=== PATIENT | female | born 1960 | race Asian ===

== ENCOUNTER → 2018-03-04 11:34 | Outpatient (CLI) | payer OTHER, SELFPAY | PROVIDERS: PCP Family Medicine | DX: Z23 Encounter for immunization (principal) | CPT/HCPCS: 90471; 90682 ==

== ENCOUNTER → 2019-03-25 17:28 | Outpatient (CLI) | payer OTHER, BC, SELFPAY | PROVIDERS: PCP Family Medicine | DX: Z23 Encounter for immunization (principal) | CPT/HCPCS: 90471; 90682 ==

== ENCOUNTER → 2019-07-08 07:36 | Outpatient (CLI) | payer OTHER, BC, SELFPAY ==
--- NOTE | 2019-07-08 | DI.MG.S_ITS ---
BILATERAL DIGITAL SCREENING MAMMOGRAM 3D/2D WITH CAD: 07/08/2019 CLINICAL: Routine screening. Comparison is made to exams dated: 03/17/2014 mammogram, 08/09/2011 mammogram, and 05/07/2007 mammogram - [facility]. The tissue of both breasts is heterogeneously dense. This may lower the sensitivity of mammography. Current study was also evaluated with a Computer Aided Detection (CAD) system. No significant masses, calcifications, or other findings are seen in either breast. There has been no significant interval change. IMPRESSION: NEGATIVE There is no mammographic evidence of malignancy. A 1 year screening mammogram is recommended. This exam was interpreted at Station ID: [id number]. NOTE: For mammograms, a report in lay terms will be sent to the patient. Approximately 15% of breast malignancies will not be visualized mammographically. In the management of a palpable breast mass, a negative mammogram must not discourage biopsy of a clinically suspicious lesion. Electronically Signed By: Francisco hay/jerzy:07/08/2019 08:51:06 letter sent: Normal Exam ACR BI-RADS Category 1: Negative [id number]
== END ==
PROVIDERS: PCP Family Medicine; Referring Provider Family Medicine; Visit Provider Family Medicine
DX: Z12.31 Encounter for screening mammogram for malignant neoplasm of breast (principal)
CPT/HCPCS: 77063; 77067

== ENCOUNTER → 2020-01-19 10:14 | Outpatient (CLI) | payer OTHER, BC, SELFPAY ==
[2020-01-20 09:16] LABS: COVID19 Sendout Not Detected (Not Detect)
== END ==
PROVIDERS: PCP Family Medicine; Visit Provider Physician Assistant
DX: Z03.818 Encounter for observation for suspected exposure to other biological agents ruled out (principal); R05 Cough
CPT/HCPCS: 87635

== ENCOUNTER → 2020-03-24 | Outpatient (CLI) | payer OTHER, BC, SELFPAY | PROVIDERS: PCP Family Medicine; Referring Provider Internal Medicine; Visit Provider Internal Medicine | DX: Z23 Encounter for immunization (principal) | CPT/HCPCS: 90471; 90682 ==

== ENCOUNTER → 2020-03-31 09:58 | Outpatient (CLI) | payer OTHER, BC, SELFPAY ==
[2020-03-31 10:23] LABS: COVID19 -Nasal RAPID Negative (Negative)
== END ==
PROVIDERS: PCP Family Medicine; Visit Provider Physician Assistant
DX: Z11.59 Encounter for screening for other viral diseases (principal)
CPT/HCPCS: 87635

== ENCOUNTER → 2020-06-28 08:54 | Outpatient (CLI) | payer OTHER, BC, SELFPAY ==
[2020-06-28 09:21] LABS: COVID19 -Nasal RAPID Negative (Negative)
== END ==
PROVIDERS: PCP Family Medicine; Visit Provider Nurse Practitioner Family
DX: Z20.822 Contact with and (suspected) exposure to COVID-19 (principal)
CPT/HCPCS: 87635

== ENCOUNTER → 2021-01-18 11:43 | Outpatient (CLI) | payer OTHER, BC, SELFPAY ==
[2021-01-18 14:04] LABS: COVID19 -Nasal RAPID Negative (Negative)
== END ==
PROVIDERS: PCP Family Medicine; Visit Provider Nurse Practitioner
DX: Z20.822 Contact with and (suspected) exposure to COVID-19 (principal)
CPT/HCPCS: 87635

== ENCOUNTER → 2021-03-24 10:48 | Outpatient (CLI) | payer OTHER, BC, SELFPAY ==
[2021-03-26 11:32] LABS: COVID19 Sendout Not Detected (Not Detect)
== END ==
PROVIDERS: PCP Family Medicine; Visit Provider Nurse Practitioner
DX: Z20.822 Contact with and (suspected) exposure to COVID-19 (principal)
CPT/HCPCS: 87635

== ENCOUNTER → 2024-03-11 09:44 | Outpatient (CLI) | payer OTHER, SELFPAY ==
--- NOTE | 2024-03-11 09:46 | DI.RAD.S_ITS ---
PROCEDURE: XR KNEE LT 3V INDICATIONS: KNEE PAIN TECHNIQUE: 3 views of the knee were acquired. COMPARISON: None. FINDINGS: Bones: No fractures or dislocations. Osteophytic lipping most pronounced at the lateral left patella. The patellar tracks laterally without the kinesiology tape. Minimal joint space loss. No suspicious bony lesions. Soft tissues: Small left joint effusion. No suspicious soft tissue calcifications. IMPRESSION: No acute fracture. Mild degenerative changes seen. Compared to the xray with taping, there is minimal left patellar tracking without the kinesiology tape. Consider MRI for further evaluation. Dictated by: Pierre Bryant M.D. on 03/12/2024 at 18:43 Approved by: Pierre Bryant M.D. on 03/12/2024 at 18:47
== END ==
PROVIDERS: PCP Family Medicine; Referring Provider Family Medicine; Visit Provider Family Medicine
DX: M25.562 Pain in left knee (principal); M25.462 Effusion, left knee
CPT/HCPCS: 73562

== ENCOUNTER → 2024-04-29 | Outpatient (CLI) | payer OTHER, BC, SELFPAY ==
--- NOTE | 2024-04-29 11:46 | DI.RAD.S_ITS ---
PATIENT NAME: VANDANA CAVAZOS : 1960 EXAM DATE: 04/29/2024 11:[address] SADI DE JESUS M.D. CC: MODALITY: CR PATIENT TYPE: Out CONTRAST MEDIA: STATION ID: [id number] FLUORO TIME: PROCEDURE: XR LUMBAR SPINE MIN 4V INDICATIONS: RIGHT LOW BACK PAIN TECHNIQUE: 5 views of the lumbar spine acquired, including flexion and extension views. COMPARISON: None. FINDINGS: Bones: 5 nonrib-bearing vertebrae are present. There is normal bony alignment. No vertebral body compression fractures. No suspicious bony lesions. Endplate osteophytes indicating early mild multilevel disc degeneration. Right hip arthroplasty partially visualized. Soft tissues: Overlying bowel gas pattern is normal. No suspicious soft tissue calcifications. Flexion/extension: There is reduced range of motion, with preserved normal alignment. IMPRESSION: Endplate osteophytes indicating early mild multilevel disc degeneration. Dictated by: Titi DAMIAN Interpreted: Charlie Koehler MD on 05/01/2024 at 9:57 Transcribed by: MIKE on 05/01/2024 at 9:59 Approved by: Charlie Koehler M.D. on 05/14/2024 at 8:19
== END ==
PROVIDERS: PCP Family Medicine; Referring Provider Family Medicine; Visit Provider Family Medicine
DX: M54.41 Lumbago with sciatica, right side (principal); G89.29 Other chronic pain; M25.78 Osteophyte, vertebrae
CPT/HCPCS: 72110

== ENCOUNTER → 2024-08-19 06:56 | Outpatient (CLI) | payer OTHER, BC, SELFPAY ==
--- NOTE | 2024-08-19 06:58 | DI.MG.S_ITS ---
MM screening mammo BI: 08/19/2024. BI-RADS: 0 CLINICAL: 63-year old female for bilateral screening mammogram. Tyrer-Cuzick lifetime risk of 6.5%. No personal or first-degree family history of breast cancer. PRIOR EXAMS 07/08/2019. MAMMOGRAPHY TECHNIQUE: 2D and 3D (tomosynthesis) digital mammographic views obtained, with additional images as needed for full coverage. Current study was also evaluated with a Computer Aided Detection (CAD) system. DENSITY C. The breasts are heterogeneously dense, which may obscure small masses. MAMMOGRAPHY FINDINGS Right: MLO only, Upper, Middle depth, measuring 0.6 cm: Asymmetry needing additional imaging evaluation. Right: Upper Outer Quadrant, Middle depth: Architectural distortion needing additional imaging evaluation. Left: No suspicious mass, asymmetry, microcalcification, or other abnormality seen. IMPRESSION: Right (Asymmetry): MLO only, Upper, Middle depth, measuring 0.6 cm * Incomplete - asymmetry needing additional imaging evaluation. Right (Arch Distortion): Upper Outer Quadrant, Middle depth * Incomplete - architectural distortion needing additional imaging evaluation. Left * No evidence of malignancy. RECOMMENDATIONS Right * Further evaluation with diagnostic mammography and diagnostic ultrasound. OVERALL ASSESSMENT CATEGORY BI-RADS-0: Incomplete - Need Additional Imaging Evaluation. ELECTRONICALLY SIGNED: Nelda Jeffries M.D. on 08/19/2024 at 03:04:41 PM PT Interpreting Station ID: [id number]
--- NOTE | 2024-08-19 06:58 | DI.MRI.S_ITS ---
PROCEDURE: MR KNEE LT WO CON INDICATIONS: ACUTE PAIN OF LEFT KNEE/ROUTINE SCREENING TECHNIQUE: Noncontrast sagittal PD fast spin echo and T2 fast spin echo with fat saturation, sagittal 3-D FLASH with fat saturation; coronal T1 spin echo and PD fast spin echo with fat saturation, and axial PD fast spin echo with fat saturation through the knee. COMPARISON: [facility], CR, XR KNEE LT 3V, 03/11/2024, 10:00. FINDINGS: Image quality: Excellent. Menisci: Vertically oriented linear high T2 signal intensity traverses the peripheral 3rd of the medial meniscal body, demonstrating superior and inferior articular surface extension, indicating vertical tearing. Linear oblique high T2 signal intensity traverses the middle and peripheral thirds of the lateral meniscal body without definite articular surface extension. Cruciate ligaments: The anterior and posterior cruciate ligaments appear intact. Medial structures: The medial collateral ligament appears intact. Visualized portions of the pes anserinus tendons appear normal. No abnormal bursal fluid. Lateral structures: The lateral collateral ligament, long and short heads of the biceps femoris tendon appear intact. The popliteus tendon appears normal. Iliotibial band appears normal. Anterior structures: The quadriceps and patellar tendons appear intact. Lateral ventral trochlear prominence. Lateral patellar subluxation with shallow trochlear groove. Mild edema within the superolateral aspect of the infrapatellar fat pad. Bones and cartilage: No bone marrow contusions or fractures. Mild tricompartmental periarticular osteophyte formation. Mild subchondral degenerative marrow edema within the posterior weight-bearing aspect of the lateral femoral condyle. Moderate articular cartilage loss diffusely overlies the weight-bearing aspects of the medial femoral condyle and medial tibial plateau. Mild articular cartilage loss diffusely overlies the weight-bearing aspects of the lateral femoral condyle and lateral tibial plateau. There is a superimposed full-thickness region of articular cartilage loss overlying the posterior weight-bearing aspect of the lateral femoral condyle measuring 4 mm anteroposterior. Moderate articular cartilage loss overlies the medial lateral patellar facets with superimposed moderate to high-grade articular cartilage loss overlying the lateral patellar facet inferiorly. Joint space: There is a small knee joint effusion and a trace Frye's cyst. Small ganglion cyst along the popliteus. Normal appearing synovial plicae are incidentally noted. IMPRESSION: 1. Tricompartmental osteoarthritis with associated articular cartilage loss. 2. Medial meniscal tearing. 3. Findings consistent with lateral patellofemoral friction syndrome in the appropriate clinical setting. Dictated by: Colleen Mccann M.D. on 08/19/2024 at 11:31 Approved by: Colleen Mccann M.D. on 08/19/2024 at 11:35
== END ==
PROVIDERS: PCP Family Medicine; Referring Provider Family Medicine; Visit Provider Family Medicine
DX: R92.333 Mammographic heterogeneous density, bilateral breasts (principal); S83.222A Peripheral tear of medial meniscus, current injury, left knee, initial encounter; M17.12 Unilateral primary osteoarthritis, left knee; Z12.31 Encounter for screening mammogram for malignant neoplasm of breast; M25.562 Pain in left knee
CPT/HCPCS: 73721; 77063; 77067

== ENCOUNTER → 2025-03-25 11:51 | Outpatient (CLI) | payer OTHER, SELFPAY ==
[2025-03-25 13:13] LABS: Cholesterol 223 mg/dL (140-199); HDL Cholesterol 95 mg/dL (40-60); Triglycerides 69 mg/dL (35-150)
== END ==
PROVIDERS: PCP Family Medicine; Referring Provider Family Medicine; Visit Provider Family Medicine
DX: E78.2 Mixed hyperlipidemia (principal)
CPT/HCPCS: 36415; 80061